=== PATIENT | female | born 1970 | race African-American/Black ===

== ENCOUNTER 2020-04-29 13:59 | Outpatient (REF) | payer BC, SELFPAY ==
--- NOTE | 2020-04-29 | US_ITS ---
EXAMINATION: US RETROPERITONEAL LIMITED (RENAL ONLY) CLINICAL INFORMATION: Calculus of kidney. COMPARISON: CT abdomen and pelvis without contrast dated 12/01/2019. Ultrasound kidney and bladder dated 11/30/2019. X-ray abdomen single view KUB dated 11/17/2019. Retroperitoneal limited ultrasound dated 10/18/2019. TECHNIQUE: Real-time imaging of the kidneys. FINDINGS: RIGHT KIDNEY: 10.2 x 4.4 x 5.5 cm (SAG x AP x TRV). The kidney is normal in size, contour, and echogenicity. Renal cortical thickness is normal. No calculi or focal parenchymal lesions. No hydronephrosis. LEFT KIDNEY: 10.5 x 6.1 x 5.1 cm (SAG x AP x TRV). The kidney is normal in size, contour, and echogenicity. Renal cortical thickness is normal. No focal parenchymal lesions. Echogenic microcalcifications in the midpole. There is mild prominence of kidney pelvis and proximal ureter compression extrarenal pelvis versus mild hydronephrosis. US/US renal BI IMPRESSION: Small microcalcifications and the upper pole. No caliectasis. Mild prominence of kidney pelvis and proximal ureter, question extrarenal kidney pelvis versus mild hydronephrosis. Unremarkable right kidney.
== END 2020-04-29 14:00 | disposition home or self-care (01) ==
LOC: HO.US 13:59
PROVIDERS: PCP Internal Medicine; Visit Provider Urology
DX: N20.0 Calculus of kidney (principal)
CPT/HCPCS: 76775

== ENCOUNTER 2020-05-03 12:27 | Outpatient (REF) | payer BC, SELFPAY | END 2020-05-03 12:28 | disposition home or self-care (01) | LOC: HO.MAMMO 12:27 | PROVIDERS: PCP Internal Medicine; Visit Provider Internal Medicine | DX: Z13.89 Encounter for screening for other disorder (principal) ==

== ENCOUNTER 2020-07-17 10:32 | Day surgery (SDC) | payer BC, SELFPAY ==
--- NOTE | 2020-07-15 14:40 | P.CONAN_ITS ---
Documented by User: Lisette Olmstead 07/22/20 12:39 HPI - Anesthesia Eval Consult details Narrative: 49yo F for Upper Endoscopy and Colonoscopy PMFSH Active Problems Active Problems: All Active Problems (Updated 07/12/20 @ 11:04 by Susannah Garcia) Hypothyroidism (Acute) Cervical paraspinal muscle spasm (Acute) Headache (Acute) Head injury (Acute) Past Medical History Medical History (Updated 07/24/20 @ 15:06 by Nini Quintero MD) Acquired hypothyroidism Ectopic Head injury Headache History of depression Hx gestational diabetes Hx of papillary thyroid carcinoma Hx of renal calculi Hypothyroidism Impaired glucose tolerance Neck pain Shoulder pain Shoulder pain Family History Family History (Updated 07/24/20 @ 14:56 by Nini Quintero MD) Father HTN (hypertension) Mother HTN (hypertension) CHF (congestive heart failure) Surgical History Surgical History H/O thyroidectomy Social History Social History (Updated 07/24/20 @ 14:56 by Nini Quintero MD) Alcohol intake: current Alcohol intake frequency: holidays/special occasions only Alcohol type: wine Smoking Status: Former smoker Tobacco Type: Cigarette Meds Allergies Allergy/AdvReac Type Severity Reaction Status Date / Time clindamycin [CLINDAMYCIN] Allergy Severe SEVERE Verified 07/24/20 14:52 DIARRHEA Home Medications Medication Instructions Recorded Confirmed Last Taken Type cetirizine 10 mg tablet 10 mg PO DAILY 07/03/20 07/24/20 Unknown History fluticasone propionate 50 1 spray INTRANASAL DAILY 07/03/20 07/24/20 Unknown History mcg/actuation nasal spray,suspension pyridoxine (vitamin B6) 50 mg 50 mg PO DAILY 07/03/20 07/24/20 Unknown History tablet meclizine 25 mg tablet mg PO 07/24/20 07/24/20 Unknown History Exam Exam Date and Time: July 15, [id number] Assessment and Plan Assessment Anesthesia Assessment: Chart Reviewed Documented by User: Nicolle GomesFreedom 07/31/20 07:23 [facility] Past Medical History Medical History (Updated 07/24/20 @ 15:06 by Nini Quintero MD) Acquired hypothyroidism Ectopic Head injury Headache History of depression Hx gestational diabetes Hx of papillary thyroid carcinoma Hx of renal calculi Hypothyroidism Impaired glucose tolerance Neck pain Shoulder pain Shoulder pain Family History Family History (Updated 07/24/20 @ 14:56 by Nini Quintero MD) Father HTN (hypertension) Mother HTN (hypertension) CHF (congestive heart failure) Surgical History Surgical History H/O thyroidectomy Social History Social History (Updated 07/24/20 @ 14:56 by Nini Quintero MD) Alcohol intake: current Alcohol intake frequency: holidays/special occasions only Alcohol type: wine Smoking Status: Former smoker Tobacco Type: Cigarette Meds Allergies Allergy/AdvReac Type Severity Reaction Status Date / Time clindamycin [CLINDAMYCIN] Allergy Severe SEVERE Verified 07/24/20 14:52 DIARRHEA Home Medications Medication Instructions Recorded Confirmed Last Taken Type cetirizine 10 mg tablet 10 mg PO DAILY 07/03/20 07/24/20 Unknown History fluticasone propionate 50 1 spray INTRANASAL DAILY 07/03/20 07/24/20 Unknown History mcg/actuation nasal spray,suspension pyridoxine (vitamin B6) 50 mg 50 mg PO DAILY 07/03/20 07/24/20 Unknown History tablet meclizine 25 mg tablet mg PO 07/24/20 07/24/20 Unknown History
[2020-07-16 09:21] VITALS: BMI 27.9
--- NOTE | 2020-07-17 10:40 | PC.NURSE ---
Dr. Stubbs notified that patient had tea with sugar, no cream/milk, at 6am this morning. Okay to proceed with procedure per Dr. Stubbs.
[2020-07-17 10:42] VITALS: BMI 27.9
[2020-07-17 10:59] VITALS: BP 161/96; PULSE 83; RESP 16; TEMP 36.8; O2SAT 100
[2020-07-17 11:03] VITALS: BP 141/92
--- NOTE | 2020-07-17 11:08 | MHC.SHP ---
Pre-Procedural Eval Section B Chief Complaint: screening,dysphagia Relevant Family History (Specify if Yes): No Relevant Social History: None Present Medications: see Short Stay Collaborative assessment Medical History: Significant History (Ectopic Head injury Headache History of depression Hx gestational diabetes Hx of papillary thyroid carcinoma Hx of renal calculi Hypothyroidism Neck pain Shoulder pain) History of Previous Operations: Relevant previous surgery/procedure and date(s) (thyroidectomy) Allergies: Allergies Allergy/AdvReac Type Severity Reaction Status Date / Time clindamycin [CLINDAMYCIN] Allergy Severe SEVERE Unverified 02/08/20 17:51 DIARRHEA Clindamycin HCl Allergy Unknown Uncoded 12/05/19 00:00 Review of Systems Sugical H&P ROS: Negative: Constitution, Cardiovascular, Respiratory, Neurological, Psychiatric, Hem-Onc, Allergic/Immunologic, Gastrointestinal, Genitourinary, Musculoskeletal, Integumentary, Endocrine and Eyes/Ears/Nose/Throat Exam Surgical H&P Exam: Normal: HEENT, Normal: Heart, Normal: Lungs, Normal: Extremities, Normal: Abdomen, Normal: Skin and Normal: Neurological Plan Diagnosis/Plan: Unchanged I have reviewed the history and physical and performed a pertinent physical examination on my patient. No changes have occurred unless specified.
--- NOTE | 2020-07-17 11:09 | PM.OP ---
Brief Operative Note Date of Service: 07/17/20 Pre-op diagnosis: hx of dysphagia, screening Post-op diagnosis: same Procedure: see op note Surgeon: Nubia Gottlieb MD Anesthesia: MAC Estimated blood loss (mL): 0 Condition: stable Disposition: PACU
--- NOTE | 2020-07-17 11:09 | W.PM.OPN ---
Operative Note Operative Note Date of Service: 07/17/20 Narrative: Operative Information Procedure Description: EGD, Colonoscopy FLEXIBLE TRANSORAL UPPER GASTROINTESTINAL ENDOSCOPY AND COLONOSCOPY PROCEDURE NOTE UPPER ENDOSCOPY Consent: Indications for the procedure and potential complications of bleeding, perforation, reaction to medications and missed diagnosis were discussed with the patient and informed consent was obtained. Instrument: Olympus GIF H 190 J mid size upper endoscope Monitoring: Vital signs and clinical assessment, continuous EKG monitoring, Pulse oximetry, Carbon Dioxide monitoring and blood pressure monitoring were done throughout the procedure. Procedure: The patient was placed in the left lateral decubitis position and pre-procedure medications were administered and a bite block was placed. The endoscope was inserted into the mouth and advanced under direct vision to the third part of duodenum. A careful inspection was made as the upper endoscope was withdrawn including a retroflexed examination of the proximal stomach; Findings and interventions are described below. Findings: Larynx:normal Esophagus: GE junction at 37 cm, diaphragm hiatus at 37 cm, moderate inflammed GEJ bx taken as well as random esophagus Stomach: Normal mucosa. Biopsies were obtained. Grade 2 flap valve on retroflexed examination of the cardia. Duodenum: Normal bulb and descending duodenum, bx taken Intervention: Biopsies as noted above COLONOSCOPY Instrument: Olympus variable stiffness pediatric scope 190L Colonoscopy Monitoring: Vital signs and clinical assessment, continuous EKG monitoring, Pulse oximetry, Carbon Dioxide monitoring and blood pressure monitoring were done throughout the procedure. Colon withdrawal time was 10 minutes. Procedure: The patient was placed in the left lateral decubitis position and pre-procedure medications were administered. After a digital rectal examination of the ano-rectum, the video colonoscope was inserted into the rectum and advanced through the colon to the cecum/TI. The colonoscope was slowly withdrawn in a retrograde panoramic fashion and the colon mucosa was carefully examined including a retroflexed view of the rectum. Findings and interventions are described below. Procedure Difficulty:easy Findings: Terminal Ileum-normal Cecum:normal Ascending Colon: normal Transverse Colon -normal Descending Colon:normal Sigmoid Colon: normal Rectum: Retroflexion with small internal hemorrhoids, grade I Anorectum - normal Colon preparation: [place] Bowel Preparation Scale Right colon; 3 Transverse colon: 3 Left colon; 2 (0 = Unprepared colon segment with mucosa not seen due to solid stool that cannot be cleared. 1 = Portion of mucosa of the colon segment seen, but other areas of the colon segment not well seen due to staining, residual stool and/or opaque liquid. 2 = Minor amount of residual staining, small fragments of stool and/or opaque liquid, but mucosa of colon segment seen well. 3 = Entire mucosa of colon segment seen well with no residual staining, small fragments of stool or opaque liquid) Impression and Post Procedure Diagnosis: Endoscopy Findings: esophagitis Colonoscopy Findings: internal hemorrhoids Plan: Await Pathology results Repeat Colonoscopy in 10 years or earlier if clinically indicated High fiber diet leaflet avoid straining at stool, epsom salts and sitz bath, anusol supps or cream low dose PPI (she feels dysphagia sx better since last seen, but probably should be on PPI to reduce risk of peptic stricture) Above findings were reviewed with the patient and relevant handouts were provided if indicated.
[2020-07-17] MEDS: Lactated Ringers 1,000 ML 100 ML IVCONT (11:19)
--- NOTE | 2020-07-17 11:21 | HO.ANESPROP2 ---
[facility] Active Problems Active Problems: All Active Problems (Updated 07/15/20 @ 16:14 by Arabella Triana NP) Shoulder pain (Acute) Hypothyroidism (Acute) Cervical paraspinal muscle spasm (Acute) Headache (Acute) Head injury (Acute) Past Medical History Medical History Ectopic Head injury Headache History of depression Hx gestational diabetes Hx of papillary thyroid carcinoma Hx of renal calculi Hypothyroidism Neck pain Shoulder pain Shoulder pain Family History Family History Father HTN (hypertension) Mother No problems noted. Surgical History Surgical History H/O thyroidectomy Social History Social History Alcohol intake: never Smoking Status: Never smoker Use of substances other than those prescribed or required for medical reasons: No Advance Directives: No Advance Directives Information Provided: Yes Recently lost weight without trying: No Meds Allergies Allergy/AdvReac Type Severity Reaction Status Date / Time clindamycin [CLINDAMYCIN] Allergy Severe SEVERE Unverified 02/08/20 17:51 DIARRHEA Clindamycin HCl Allergy Unknown Uncoded 12/05/19 00:00 Active Medications: Current Medications Generic Name Dose Route Start Last Admin Trade Name Freq PRN Reason Stop Dose Admin Lactated Ringer's 1,000 mls @ 100 mls/hr 07/17/20 10:45 07/17/20 11:19 Lr IVCONT 100 mls/hr .Q10H HELGA Administration Home Medications Medication Instructions Recorded Confirmed Last Taken Type cetirizine 10 mg tablet 10 mg PO DAILY 07/03/20 07/15/20 Unknown History fluticasone propionate 50 1 spray INTRANASAL DAILY 07/03/20 07/15/20 Unknown History mcg/actuation nasal spray,suspension pyridoxine (vitamin B6) 50 mg 50 mg PO DAILY 07/03/20 07/15/20 Unknown History tablet Exam Exam Date and Time: July 17, 2020 1121 Height,Weight and Vital Signs: Height 5 ft 10 in Weight 88.451 kg Last Vital Signs Temp 98.3 F 07/17/20 10:59 Pulse 83 07/17/20 10:59 Resp 16 07/17/20 10:59 BP 141/92 H 07/17/20 11:03 Pulse Ox 100 07/17/20 10:59 Airway Mallampati Class: I TM Dist: >3cm Neck ROM: Full Heart: RRR Lungs: CTA
[2020-07-17 12:52] VITALS: BP 107/70; PULSE 80; RESP 16; TEMP 36.1; O2SAT 98
[2020-07-17 13:07] VITALS: BP 124/68; PULSE 67; RESP 17; TEMP 36.7; O2SAT 100
--- NOTE | 2020-07-17 13:24 | HO.POSTANES ---
Post Anesthesia Evaluation Post Anesthesia Evaluation Vital Signs: Vital Signs Temp Pulse Resp BP Pulse Ox 07/17/20 13:07 98.1 F 67 17 124/68 100 07/17/20 12:52 97.0 F 80 16 107/70 98 07/17/20 11:03 141/92 H 07/17/20 10:59 98.3 F 83 16 161/96 H 100 Anesthesia: Monitored Mental Status: Awake Pain Control: Satisfactory Nausea/Vomiting: None Hydration: Adequate Anesthesia-Related Issues: No Anes. Related Issues
== END 2020-07-17 14:33 | disposition home or self-care (01) ==
PROVIDERS: PCP Internal Medicine; Visit Provider Internal Medicine Gastroenterology
PROC: (CPT 45378; principal; 2020-07-17 12:00)
DX: Z12.11 Encounter for screening for malignant neoplasm of colon (principal); K64.0 First degree hemorrhoids; K20.90 Esophagitis, unspecified without bleeding; K44.9 Diaphragmatic hernia without obstruction or gangrene; Z85.850 Personal history of malignant neoplasm of thyroid; Z79.899 Other long term (current) drug therapy; Z88.1 Allergy status to other antibiotic agents
CPT/HCPCS: 45378; 43239; 88305; 88342

== ENCOUNTER → 2020-08-09 10:33 | Outpatient (BNVA) | payer OTHER, BC, SELFPAY | PROVIDERS: PCP Internal Medicine; Visit Provider Internal Medicine Gastroenterology ==

== ENCOUNTER → 2020-09-05 13:39 | Outpatient (REF) | payer BC, SELFPAY ==
--- NOTE | 2020-09-05 13:46 | ECG_ITS ---
Test Reason : Z01.818 Blood Pressure : / mmHG Vent. Rate : 073 BPM Atrial Rate : 073 BPM P-R Int : 204 ms QRS Dur : 084 ms QT Int : 412 ms P-R-T Axes : 046 003 014 degrees QTc Int : 453 ms Normal sinus rhythm Minimal voltage criteria for LVH, may be normal variant Borderline ECG When compared with ECG of 23-AUG-2019 13:20, No significant change was found Referred By: Nini Quintero Electronically Signed By:MARIBETH PHOENIX
== END ==
LOC: HO.CARD 13:39
PROVIDERS: PCP Internal Medicine; Visit Provider Internal Medicine
DX: Z01.810 Encounter for preprocedural cardiovascular examination (principal)
CPT/HCPCS: 93005

== ENCOUNTER 2023-08-04 16:35 | Outpatient (AMB) | payer BC, SELFPAY ==
--- NOTE | 2023-08-04 16:46 | A.OFFPC_ITS ---
Vital Signs 08/04/23 16:51 Height 5 ft 9 in Weight 197 lb BMI 29.1 BP 126/82 Blood Pressure Location Lt brachial Position Sitting Intake Visit Reasons: Re establish care-Follow up on diabetes Intake Note: Patient here to re-establish care, dm follow up [employer] Required: No Accompanied by: Self / Same As Patient Allergies clindamycin [CLINDAMYCIN] Allergy (Severe, Verified 08/04/23 17:19) SEVERE DIARRHEA Medication List - Last Reconciled 08/04/23 by Nini Quintero MD aspirin (Adult Low Dose Aspirin) 81 mg PO DAILY atorvastatin 20 mg PO BEDTIME 90 days blood sugar diagnostic (FreeStyle Test strips) Use 1 test strip once a day blood-glucose meter (FreeStyle [place] Lite kit) As directed cetirizine 10 mg PO DAILY cholecalciferol (vitamin D3) (Vitamin D3) 25 mcg PO DAILY empagliflozin (Jardiance) 10 mg PO DAILY lancets (FreeStyle Lancets) Use 1 lancet once a day levothyroxine 125 mcg PO DAILY pantoprazole 40 mg (2 x 20 mg) PO DAILY 90 days valsartan 80 mg PO DAILY Tobacco use date assessed: 08/04/23 Dental Screening Dental Screen Date: 08/04/23 Did you have a dental visit in the last 12 months?: Yes Did you have a dental problem in the last 6 months where you did not have access to dental care?: No Was dental information given to patient?: Patient has dentist HPI HPI Comments History of Present Illness Details This is a 53-year-old female with mild major depression, diabetes m ellitus type 2, anxiety, dyslipidemia and acquired hypothyroidism that comes today to reestablish care. I will start her on sertraline for her depression and anxiety. A1c is within goal today. Lipid panel will be order and her LDL goal should be less than 70. TSH will also be ordered. [facility] Medical History (Updated 08/04/23 @ 17:33 by Nini Quintero MD) Diabetes mellitus Dyslipidemia Preop cardiovascular exam Impaired glucose tolerance Acquired hypothyroidism Shoulder pain Shoulder pain Neck pain Hx of renal calculi Hx gestational diabetes History of depression Headache Head injury Ectopic Hx of papillary thyroid carcinoma Hypothyroidism Surgical History (Updated 08/04/23 @ 17:23 by Nini Quintero MD) H/O abdominoplasty History of arthroplasty of right shoulder H/O lithotripsy History of esophagogastroduodenoscopy (EGD) H/O colonoscopy H/O thyroidectomy Family History (Updated 08/04/23 @ 17:23 by Nini Quintero MD) Father HTN (hypertension) Mental health disorder Diabetes mellitus CHF (congestive heart failure) Mother HTN (hypertension) CHF (congestive heart failure) Mental health disorder Social History Household Members: Children Housing: House Alcohol intake: current Alcohol intake frequency: holidays/special occasions only Alcohol type: wine Patient Tobacco Use Status: Never used Tobacco e-Cigarette/Vaping Use: Never Used Second Hand Smoke Exposure: No service: No Current occupational status: employed Current occupational exposures/hazards: No Cognitive needs: No Hearing needs: No Vision needs: Yes Questionnaire PHQ-9 Over the last 2 weeks, how often have you been bothered by any of the following problems? 1. Little interest or pleasure in doing things: not at all 2. Feeling down, depressed, or hopeless: several days 3. Trouble falling or staying asleep, or sleeping too much: nearly every day 4. Feeling tired or having little energy: nearly every day 5. Poor appetite or overeating: several days 6. Feeling bad about yourself - or that you are a failure or have let yourself or your family down: not at all 7. Trouble concentrating on things, such as reading the newspaper or watching television: not at all 8. Moving or speaking so slowly that other people could have noticed. Or the opposite - being so fidgety or restless that you have been moving around a lot more than usual: not at all 9. Thoughts that you would be better off or of hurting yourself in some way: not at all Total score: 8 Depression Screening Interpretation: Positive Depression Screening Follow-up: Existing condition and New Medication prescribed Depression Screening Done: Yes 91271 - PHQ-9 Billing: Yes Source: Developed by Drs. Chris Charlton, Deborah Batista, Harshil Stover and colleagues, with an educational reggie from [employer]. Thrive Questionnaire Date Thrive assessed: 08/04/23 I am a: Patient What is your living situation today?: I have a steady place to live Within the past 12 months, did the food you bought not last and you didn't have the money to get more?: Never true Within the past 12 months, did you worry whether your food would run out before you got money to buy more?: Never true Do you have trouble paying for medicines?: No Do you have trouble getting transportation to medical appointments?: No Do you have trouble paying your heating and electricity bill?: No Do you have trouble taking care of your child, family member or friend?: No Do you have trouble with day-to-day activities such as bathing, preparing meals, shopping, managing finances, etc.?: No Are you currently unemployed and looking for a job?: No Are you interested in more education?: No Please select the resources that you would like help with: None Currently or been in a relationship where the following occur: no concerns reported THRIVE Score: 0 AUDIT C Alcohol Use Questionnaire (AUDIT-C) 1. How often do you have a drink containing alcohol?: Monthly or less 2. How many drinks containing alcohol do you have on a typical day when you are drinking?: 1 or 2 3. How often do you have six or more drinks on one occasion?: Never Total Score: 1 Score Reviewed/Action Taken: No TOM-7 AMB Questionnaire TOM-7 Date TOM - 7 assessed: 08/04/23 Feeling nervous, anxious, or on edge: 3 = Nearly every day Not being able to stop or control worryin = Several days Worrying too much about different things: 3 = Nearly every day Trouble relaxin = More than half the days Being so restless that it is hard to sit still: 0 = Not at all Becoming easily annoyed or irritable: 1 = Several days Feeling afraid as if something awful might happen: 0 = Not at all Total TOM-7 score (0-4 normal; 5-9 mild; 10-14 moderate; 15-21 severe): 10 Source: Developed by Drs. Chris Charlton, Deborah Batista, Harshil Stover and colleagues, with an educational reggie from [employer] TOM-7 Assessment Billing TOM-7 Assessment Tool: TOM-7 Assessment 74310 Review of Systems Const All systems reviewed & are unremarkable except as noted in HPI and below Eyes Reports no additional complaints, Denies change in vision and Denies other visual disturbances Card Denies chest pain at rest, Denies chest pain with activity, Denies edema, Denies irregular heart rhythm, Denies claudication, Denies dyspnea, Denies dyspnea on exertion, Denies orthopnea, Denies paroxysmal nocturnal dyspnea and Denies slow heart rate Resp Denies cough, Denies dyspnea and Denies dyspnea on exertion GI Denies abdominal pain, Denies change in bowel habits, Denies excessive flatus, Denies nausea and Denies vomiting Denies urinary incontinence, Denies urinary hesitancy and Denies urinary urgency Musc Denies abnormal gait, Denies atrophy, Denies deformity and Denies limited range of motion Skin/Breast Denies bleeding lesions, Denies changing lesions and Denies rash Neuro Denies abnormal gait, Denies behavioral changes and Denies lack of coordination Psych Denies behavioral changes Physical exam (Primary Care) Vital Signs: Last Vital Signs BP 126/82 08/04/23 16:51 BMI result Body Mass Index 29.1 Tobacco/Smoking Status: Tobacco use Status Tobacco use date assessed 08/04/23 08/04/23 17:00 Patient Tobacco Use Status Never used Tobacco 08/04/23 17:00 e-Cigarette/Vaping Use Never Used 08/04/23 17:00 PHQ-9: PHQ-9 Score PHQ-9: Total score 8 08/04/23 17:08 Depression Screening Interpretation: Positive Depression Screening Follow-up: Existing condition and New Medication prescribed Thrive Assessment: Date of Thrive Assessment Date Thrive assessed 08/04/23 08/04/23 17:00 Currently or been in a relationship where the following occur: no concerns reported Eyes General: appearance normal, both eyes and all related structures Eyelids: Yes eyelids normal Conjunctivae: conjunctivae normal Neck Neck: Yes normal visual inspection and Yes supple Resp Effort & Inspection: normal respiratory effort Auscultation: clear to auscultation bilaterally Cardio Jugular venous distension: no JVD Rate: regular rate Rhythm: regular rhythm Heart sounds: S1 normal heart sound present and S2 normal heart sound present Extrem General: Yes full ROM Results AMB Hemoglobin A1c AMB Hemoglobin A1c 7.0 % Last Edit by ELZA Whitley on 08/04/23 17:0 8 Results Reviewed Results Reviewed: Laboratory Last Values Hgb A1c (Clinic) 7.0 % (4.0-6.0) H 08/04/23 17:00 Assessment and Plan Assessment & Plan (1) Mild major depression: Code(s): F32.0 - Major depressive disorder, single episode, mild Plan: Start sertraline. (2) Diabetes mellitus: Code(s): E11.9 - Type 2 diabetes mellitus without complications Plan: Continue Jardiance. A1c goal is equal or less than 7%. (3) Dyslipidemia: Code(s): E78.5 - Hyperlipidemia, unspecified Plan: Continue statins. Repeat lipid panel. (4) Acquired hypothyroidism: Code(s): E03.9 - Hypothyroidism, unspecified Plan: Continue levothyroxine. Monitor TSH. (5) TOM (generalized anxiety disorder): Code(s): F41.1 - Generalized anxiety disorder Plan: Start sertraline. Orders: Orders AMB Hemoglobin A1c Today E11.9 - Type 2 diabetes mellitus without complications Microalbumin, Random (w Creat) Today E11.9 - Type 2 diabetes mellitus without complications Lipid Panel Today E78.5 - Hyperlipidemia, unspecified Comprehensive [place]. Panel Fast Today E11.9 - Type 2 diabetes mellitus without complications Vitamin D 25-OH Total Today E55.9 - Vitamin D deficiency, unspecified Thyroid Stimulating Hormone Today E03.9 - Hypothyroidism, unspecified Medications: New sertraline 25 mg PO DAILY 30 days 30 tabs 0RF F32.0 - Major depressive disorder, single episode, mild Coding Level of Care Code Est Pt Level 4 (16927) Diagnoses Mild major depression F32.0 Diabetes mellitus E11.9 Dyslipidemia E78.5 Acquired hypothyroidism E03.9 TOM (generalized anxiety disorder) F41.1 Additional Codes TOM-7 Assessment Billing - TOM-7 Assessment Tool: TOM-7 Assessment 71410 ([id number]) Time Spent (min) 26
[2023-08-04 16:51] VITALS: BP 126/82; BMI 29.1
== END 2023-08-04 17:27 | disposition home or self-care (01) ==
PROVIDERS: PCP Internal Medicine; Visit Provider Internal Medicine
DX: E11.65 Type 2 diabetes mellitus with hyperglycemia (principal); F32.0 Major depressive disorder, single episode, mild; E78.5 Hyperlipidemia, unspecified; E03.9 Hypothyroidism, unspecified; F41.1 Generalized anxiety disorder
CPT/HCPCS: 83036; 96127; 99214